=== PATIENT | female | born 1960 | race Caucasian/White ===

== ENCOUNTER → 2020-12-27 | Outpatient (CLI) | payer OTHER ==
[~2020-12-27] MED LIST: ALBU2.5V5 INH; ALEN70 PO; ATOR40TA PO; BENZ100A PO; BETA.05TO TOP; CALCITONIN-SAL3.7 M1 INH; CITA20 PO; EUTHYROX50 MCG PO; FURO20 PO; GABA300 PO; LIOT5 PO; ONDA4ODT MM; OXAYDO5 M1 PO; POTA10T PO; PRED5 PO; SYMBICORT 160-4.6 GM INH; VERAPAMIL ER120 M1 PO; [UNRECOGNIZED DRUG - OTHER] INH
[2020-12-29 09:53] LABS: Stool Occult Blood Guaiac 1 Neg (Neg)
== END | disposition home or self-care (01) ==
LOC: LAB SHORT 14:55 → LAB 14:55
PROVIDERS: Physician Assistant
DX: Z12.11 Encounter for screening for malignant neoplasm of colon (principal)
CPT/HCPCS: 82270

== ENCOUNTER 2021-04-24 14:03 | Emergency (ER) | payer OTHER ==
[~2021-04-24] VITALS: Ht 160 cm; Wt 45.4 kg
[2021-04-24 14:35] LABS: BASOPHILS ABSOLUTE AUTO 0.04 K/mm3 (0.00-0.23); BASOPHILS PERCENT AUTO 1 % (0-2); EOSINOPHILS ABSOLUTE AUTO 0.11 K/mm3 (0.00-0.68); EOSINOPHILS PERCENT AUTO 2 % (0-6); Hematocrit 50.9 % (33.0-51.0); Hemoglobin 17.6 g/dL (11.5-16.0); IMMATURE GRAN ABSOLUTE AUTO 0.06 K/mm3 (0.00-0.10); IMMATURE GRAN PERCENT AUTO 1 % (0-1); LYMPHOCYTES ABSOLUTE AUTO 1.76 K/mm3 (0.84-5.20); LYMPHOCYTES PERCENT AUTO 24 % (21-46); MONOCYTES ABSOLUTE AUTO 0.74 K/mm3 (0.16-1.47); MONOCYTES PERCENT AUTO 10 % (4-13); Mean Corpuscular HGB 31.2 pg (26.0-34.0); Mean Corpuscular HGB Conc 34.6 g/dL (31.5-36.5); Mean Corpuscular Volume 90 fL (80-100); Mean Platelet Volume 8.7 fL (9.1-12.4); NEUTROPHILS ABSOLUTE AUTO 4.56 K/mm3 (1.96-9.15); NEUTROPHILS PERCENT AUTO 63 % (41-73); Platelet Count 338 K/mm3 (150-400); RDW Coefficient Variation 13.2 % (11.7-14.2); RDW Standard Deviation 43.6 fL (35.1-46.3); Red Blood Cell Count 5.65 M/mm3 (3.80-5.20); White Blood Cell Count 7.27 K/mm3 (4.00-11.30)
[2021-04-24 14:48] LABS: Source, Urine Clean Catch
[2021-04-24 14:51] LABS: Alanine Aminotransfer (ALT/SGP 25 U/L (12-78); Albumin, Blood 3.6 g/dL (3.4-5.0); Albumin/Globulin Ratio 0.9 (0.8-1.8); Alk Phos 104 U/L (50-136); Anion Gap 8 mmol/L (6-16); Aspartate Aminotrans (AST/SGOT 20 U/L (12-37); Bilirubin, Total 0.5 mg/dL (0.1-1.0); Blood Urea Nitrogen 22 mg/dL (8-24); Bun/Creatinine Ratio 28.9 (12.0-20.0); CO2, Blood 21 mmol/L (21-32); Calcium, Blood 9.8 mg/dL (8.5-10.1); Chloride, Blood 105 mmol/L (98-108); Creatinine, Blood 0.76 mg/dL (0.40-1.00); Globulin, Blood 4.1 g/dL (2.2-4.0); Glomerular Filtration Rate >60 (60-); Glucose, Blood 136 mg/dL (70-99); Potassium, Blood 4.1 mmol/L (3.5-5.5); Sodium, Blood 134 mmol/L (136-145); Total Protein, Blood 7.7 g/dL (6.4-8.2)
[2021-04-24 15:01] LABS: Appearance, Urine Turbid (Clear); Bilirubin, Urine Neg (Neg); Blood, Urine 4+ (Neg); Color, Urine Yellow (P-Yellow); Glucose Qualitative, Urine Neg (Neg); Ketones, Urine 2+ (Neg); Leukocyte Esterase, Urine 2+ (Neg); Nitrite, Urine Neg (Neg); Protein, Urine 2+ (Neg); Specific Gravity, Urine 1.025 (1.003-1.022); Urobilinogen, Urine NORM (Normal)
[2021-04-24] MEDS ORDERED: ATOR40TA PO (15:04)
[2021-04-24] MEDS ORDERED: BENZ100A PO (15:05)
[2021-04-24] MEDS ORDERED: BETA.05TO TOP (15:05)
[2021-04-24] MEDS ORDERED: SYMBICORT 160-4.6 GM INH (15:06)
[2021-04-24] MEDS ORDERED: CALCITONIN-SAL3.7 M1 INH (15:07)
[2021-04-24] MEDS ORDERED: GABA300 PO (15:08)
[2021-04-24] MEDS ORDERED: FURO20 PO (15:08)
[2021-04-24] MEDS ORDERED: CITA20 PO (15:08)
[2021-04-24] MEDS ORDERED: [UNRECOGNIZED DRUG - OTHER] INH (15:09)
[2021-04-24] MEDS ORDERED: OXAYDO5 M1 PO (15:10)
[2021-04-24] MEDS ORDERED: EUTHYROX50 MCG PO (15:10)
[2021-04-24] MEDS ORDERED: LIOT5 PO (15:10)
[2021-04-24] MEDS ORDERED: VERAPAMIL ER120 M1 PO (15:11)
[2021-04-24] MEDS ORDERED: POTA10T PO (15:11)
[2021-04-24] MEDS ORDERED: PRED5 PO (15:11)
[2021-04-24] MEDS ORDERED: ALBU2.5V5 INH (15:12)
[2021-04-24] MEDS ORDERED: ALEN70 PO (15:12)
[2021-04-24 15:23] LABS: Squamous Epithelial Cells Mod /hpf (Few)
[2021-04-24 15:24] LABS: Bacteria Mod /hpf; Mucus Heavy (0-Heavy)
[2021-04-24] MEDS ORDERED: ONDA4ODT MM (18:04)
== END 2021-04-24 18:23 | disposition home or self-care (01) ==
LOC: ER 14:03
PROVIDERS: Emergency Medicine
DX: K52.9 Noninfective gastroenteritis and colitis, unspecified (principal); Z79.899 Other long term (current) drug therapy; Z79.52 Long term (current) use of systemic steroids
CPT/HCPCS: 36415; 74177; 80053; 81001; 83690; 85025; 87086; 96361; 96374; 96375; 96376; 99284-25; A9270; J2270; J2405; J7030; Q9967

== ENCOUNTER 2021-10-06 17:01 | Emergency (ER) | payer OTHER ==
[~2021-10-06] VITALS: Ht 160 cm; Wt 47.6 kg
[2021-10-06 18:19] LABS: BASOPHILS ABSOLUTE AUTO 0.07 K/mm3 (0.00-0.23); BASOPHILS PERCENT AUTO 1 % (0-2); EOSINOPHILS ABSOLUTE AUTO 0.09 K/mm3 (0.00-0.68); EOSINOPHILS PERCENT AUTO 1 % (0-6); Hemoglobin 18.5 g/dL (11.5-16.0); IMMATURE GRAN ABSOLUTE AUTO 0.08 K/mm3 (0.00-0.10); IMMATURE GRAN PERCENT AUTO 1 % (0-1); LYMPHOCYTES ABSOLUTE AUTO 1.42 K/mm3 (0.84-5.20); LYMPHOCYTES PERCENT AUTO 15 % (21-46); MONOCYTES ABSOLUTE AUTO 1.02 K/mm3 (0.16-1.47); MONOCYTES PERCENT AUTO 11 % (4-13); Mean Corpuscular HGB 31.4 pg (26.0-34.0); Mean Corpuscular HGB Conc 33.2 g/dL (31.5-36.5); Mean Corpuscular Volume 95 fL (80-100); Mean Platelet Volume 8.7 fL (9.1-12.4); NEUTROPHILS ABSOLUTE AUTO 6.79 K/mm3 (1.96-9.15); NEUTROPHILS PERCENT AUTO 72 % (41-73); Platelet Count 391 K/mm3 (150-400); RDW Coefficient Variation 12.7 % (11.7-14.2); RDW Standard Deviation 44.9 fL (35.1-46.3); Red Blood Cell Count 5.89 M/mm3 (3.80-5.20); White Blood Cell Count 9.47 K/mm3 (4.00-11.30)
[2021-10-06 18:24] LABS: Hematocrit 55.8 % (33.0-51.0)
[2021-10-06 18:47] LABS: Alanine Aminotransfer (ALT/SGP 28 U/L (12-78); Albumin/Globulin Ratio 0.8 (0.8-1.8); Alk Phos 138 U/L (50-136); Anion Gap 12 mmol/L (6-16); Aspartate Aminotrans (AST/SGOT 32 U/L (12-37); Bilirubin, Total 0.7 mg/dL (0.1-1.0); Blood Urea Nitrogen 28 mg/dL (8-24); Bun/Creatinine Ratio 37.9 (12.0-20.0); CO2, Blood 18 mmol/L (21-32); Calcium, Blood 10.1 mg/dL (8.5-10.1); Chloride, Blood 101 mmol/L (98-108); Creatinine, Blood 0.74 mg/dL (0.40-1.00); Globulin, Blood 4.8 g/dL (2.2-4.0); Glomerular Filtration Rate >60 (60-); Glucose, Blood 63 mg/dL (70-99); Potassium, Blood 4.6 mmol/L (3.5-5.5); Sodium, Blood 131 mmol/L (136-145); Total Protein, Blood 8.8 g/dL (6.4-8.2); Troponin I <0.015 ng/mL (0.000-0.040)
[2021-10-06 20:05] LABS: SARS-Cov-2 (COVID-19) PCR, MMC NEGATIVE (NEGATIVE)
[2021-10-06 21:00] LABS: Influenza A, PCR NEGATIVE (NEGATIVE); Influenza B, PCR NEGATIVE (NEGATIVE); Resp Syncytial Virus, PCR NEGATIVE (NEGATIVE)
[2021-10-06] MEDS ORDERED: ALMACONE SUSPE355 ML PO (22:10)
[2021-10-06] MEDS ORDERED: FAMO20 PO (22:10)
== END 2021-10-06 22:23 | disposition home or self-care (01) ==
LOC: ER 17:01
PROVIDERS: Physician Assistant; Student in an Organized Health Care Education/Training Program
DX: K29.70 Gastritis, unspecified, without bleeding (principal); J44.9 Chronic obstructive pulmonary disease, unspecified; K29.80 Duodenitis without bleeding; Z20.822 Contact with and (suspected) exposure to COVID-19; Z88.2 Allergy status to sulfonamides; Z91.030 Bee allergy status; Z88.8 Allergy status to other drugs, medicaments and biological substances; Z91.048 Other nonmedicinal substance allergy status; Z79.899 Other long term (current) drug therapy; Z79.52 Long term (current) use of systemic steroids
CPT/HCPCS: 0241U; 36415; 71045; 74177; 80053; 83690; 84484; 85025; 93005; 93010; 96374; 96375; 99284-25; A9270; J2270; J2405; J7030; Q9967

== ENCOUNTER 2023-09-11 08:36 | Emergency (ER) | payer OTHER ==
[~2023-09-11] VITALS: Ht 160 cm; Wt 52.2 kg
[~2023-09-11 08:36] MED LIST changes: +ALMACONE SUSPE355 ML PO; +FAMO20 PO
[2023-09-11 10:48] LABS: BASOPHILS ABSOLUTE AUTO 0.03 K/mm3 (0.00-0.23); BASOPHILS PERCENT AUTO 0 % (0-2); EOSINOPHILS PERCENT AUTO 4 % (0-6); Hematocrit 48.7 % (33.0-51.0); Hemoglobin 16.7 g/dL (11.5-16.0); IMMATURE GRAN ABSOLUTE AUTO 0.04 K/mm3 (0.00-0.10); IMMATURE GRAN PERCENT AUTO 1 % (0-1); LYMPHOCYTES ABSOLUTE AUTO 1.65 K/mm3 (0.84-5.20); LYMPHOCYTES PERCENT AUTO 24 % (21-46); MONOCYTES ABSOLUTE AUTO 0.71 K/mm3 (0.16-1.47); MONOCYTES PERCENT AUTO 10 % (4-13); Mean Corpuscular HGB 30.7 pg (26.0-34.0); Mean Corpuscular HGB Conc 34.3 g/dL (31.5-36.5); Mean Corpuscular Volume 90 fL (80-100); Mean Platelet Volume 8.9 fL (9.1-12.4); NEUTROPHILS ABSOLUTE AUTO 4.15 K/mm3 (1.96-9.15); NEUTROPHILS PERCENT AUTO 60 % (41-73); Platelet Count 335 K/mm3 (150-400); RDW Coefficient Variation 12.3 % (11.7-14.2); RDW Standard Deviation 40.4 fL (35.1-46.3); Red Blood Cell Count 5.44 M/mm3 (3.80-5.20); White Blood Cell Count 6.88 K/mm3 (4.00-11.30)
[2023-09-11 11:09] LABS: Albumin, Blood 3.7 g/dL (3.4-5.0); Albumin/Globulin Ratio 0.8 (0.8-1.8); Bilirubin, Total 0.6 mg/dL (0.1-1.0); Bun/Creatinine Ratio 23.7 (12.0-20.0); Calcium, Blood 9.7 mg/dL (8.5-10.1); Creatinine, Blood 0.89 mg/dL (0.40-1.00); Globulin, Blood 4.4 g/dL (2.2-4.0); Potassium, Blood 4.5 mmol/L (3.5-5.5); Total Protein, Blood 8.1 g/dL (6.4-8.2)
[2023-09-11 11:11] LABS: Source, Urine Clean Catch
[2023-09-11 11:14] LABS: Bilirubin, Urine Neg (Neg); Blood, Urine 4+ (Neg); Glucose Qualitative, Urine Neg (Neg); Ketones, Urine 3+ (Neg); Leukocyte Esterase, Urine 3+ (Neg); Nitrite, Urine Pos (Neg); Protein, Urine 2+ (Neg); Specific Gravity, Urine 1.025 (1.003-1.022); Urobilinogen, Urine NORM (Normal)
[2023-09-11 11:26] LABS: Appearance, Urine Hazy (Clear); Bacteria Mod /hpf; Color, Urine Yellow (P-Yellow); Squamous Epithelial Cells Not Seen /hpf (Few)
[2023-09-11 13:22] VITALS: BP 135/66
[2023-09-11] MEDS ORDERED: CEFD300 PO (13:25)
== END 2023-09-11 14:04 | disposition home or self-care (01) ==
LOC: ER 08:36
PROVIDERS: Physician Assistant
DX: N39.0 Urinary tract infection, site not specified (principal); R11.2 Nausea with vomiting, unspecified; J44.9 Chronic obstructive pulmonary disease, unspecified; Z88.2 Allergy status to sulfonamides; Z88.0 Allergy status to penicillin; Z88.1 Allergy status to other antibiotic agents; Z91.030 Bee allergy status; Z91.048 Other nonmedicinal substance allergy status; Z79.51 Long term (current) use of inhaled steroids; Z79.890 Hormone replacement therapy; Z79.899 Other long term (current) drug therapy; Z79.52 Long term (current) use of systemic steroids
CPT/HCPCS: 80053; 81001; 83690; 85025; 87077; 87086; 87186; 96361; 96365; 96375; 99284-25; J1885; J2405; J7030

== ENCOUNTER → 2023-09-13 | Outpatient (CLI) | payer OTHER ==
[~2023-09-13] MED LIST changes: +CEFD300 PO
== END ==
LOC: LAB 15:46 → LAB SHORT 15:46
DX: N39.0 Urinary tract infection, site not specified (principal)
CPT/HCPCS: 87086

== ENCOUNTER 2024-01-10 13:45 | Emergency (ER) | payer OTHER ==
[~2024-01-10] VITALS: Ht 157.5 cm; Wt 54.4 kg
[2024-01-10] MEDS ORDERED: Robaxin750 MG (14:34)
[2024-01-10 14:56] LABS: BASOPHILS ABSOLUTE AUTO 0.06 K/mm3 (0.00-0.23); BASOPHILS PERCENT AUTO 1 % (0-2); EOSINOPHILS ABSOLUTE AUTO 0.22 K/mm3 (0.00-0.68); EOSINOPHILS PERCENT AUTO 3 % (0-6); Hematocrit 47.1 % (33.0-51.0); Hemoglobin 15.9 g/dL (11.5-16.0); IMMATURE GRAN ABSOLUTE AUTO 0.06 K/mm3 (0.00-0.10); IMMATURE GRAN PERCENT AUTO 1 % (0-1); LYMPHOCYTES ABSOLUTE AUTO 1.57 K/mm3 (0.84-5.20); LYMPHOCYTES PERCENT AUTO 24 % (21-46); MONOCYTES ABSOLUTE AUTO 0.98 K/mm3 (0.16-1.47); MONOCYTES PERCENT AUTO 15 % (4-13); Mean Corpuscular HGB 30.4 pg (26.0-34.0); Mean Corpuscular HGB Conc 33.8 g/dL (31.5-36.5); Mean Corpuscular Volume 90 fL (80-100); NEUTROPHILS ABSOLUTE AUTO 3.68 K/mm3 (1.96-9.15); NEUTROPHILS PERCENT AUTO 56 % (41-73); Platelet Count 352 K/mm3 (150-400); RDW Coefficient Variation 12.6 % (11.7-14.2); RDW Standard Deviation 41.9 fL (35.1-46.3); Red Blood Cell Count 5.23 M/mm3 (3.80-5.20); White Blood Cell Count 6.57 K/mm3 (4.00-11.30)
[2024-01-10 15:08] LABS: Albumin, Blood 3.4 g/dL (3.4-5.0); Albumin/Globulin Ratio 0.8 (0.8-1.8); Bilirubin, Total 0.6 mg/dL (0.1-1.0); Calcium, Blood 9.8 mg/dL (8.5-10.1); Creatinine, Blood 0.65 mg/dL (0.40-1.00); Globulin, Blood 4.5 g/dL (2.2-4.0); Potassium, Blood 4.4 mmol/L (3.5-5.5); Total Protein, Blood 7.9 g/dL (6.4-8.2)
[2024-01-10] MEDS ORDERED: Albuterol 2.5 MG/3 ML VIAL INH ONE (15:10)
[2024-01-10] MEDS ORDERED: Metoclopramide HCl 5MG / ML 2ML Vial IV ONE (15:10)
[2024-01-10] MEDS ORDERED: NS 1,000 ML IV ONE (15:10)
[2024-01-10 15:30] VITALS: BP 138/86
[2024-01-10 16:02] LABS: International Normalized Ratio 1.03; Prothrombin Time Results 10.8 Sec (9.7-11.5)
[2024-01-10 16:26] LABS: Influenza A, PCR NEGATIVE (NEGATIVE); Influenza B, PCR NEGATIVE (NEGATIVE); Resp Syncytial Virus, PCR NEGATIVE (NEGATIVE); SARS-Cov-2 (COVID-19) PCR, MMC NEGATIVE (NEGATIVE)
[2024-01-10 16:30] LABS: Albumin, Blood 3.2 g/dL (3.4-5.0); Albumin/Globulin Ratio 0.7 (0.8-1.8); Bilirubin, Total 0.5 mg/dL (0.1-1.0); Bun/Creatinine Ratio 32.1 (12.0-20.0); Calcium, Blood 9.4 mg/dL (8.5-10.1); Creatinine, Blood 0.65 mg/dL (0.40-1.00); Globulin, Blood 4.5 g/dL (2.2-4.0); Potassium, Blood 4.1 mmol/L (3.5-5.5); Total Protein, Blood 7.7 g/dL (6.4-8.2)
[2024-01-10] MEDS ORDERED: ONDA4ODT SL (16:59)
== END 2024-01-10 17:21 | disposition home or self-care (01) ==
LOC: ER 13:45
PROVIDERS: Emergency Medicine; Student in an Organized Health Care Education/Training Program
DX: R11.10 Vomiting, unspecified (principal); K62.5 Hemorrhage of anus and rectum; J44.9 Chronic obstructive pulmonary disease, unspecified; J40 Bronchitis, not specified as acute or chronic; E89.3 Postprocedural hypopituitarism; R10.13 Epigastric pain; I10 Essential (primary) hypertension; Z91.030 Bee allergy status; Z88.2 Allergy status to sulfonamides; Z88.0 Allergy status to penicillin; Z88.1 Allergy status to other antibiotic agents; Z79.899 Other long term (current) drug therapy; Z79.890 Hormone replacement therapy; Z79.52 Long term (current) use of systemic steroids
CPT/HCPCS: 0241U; 71045; 74177; 80053; 83690; 84484; 85025; 85610; 86850; 86900; 86901; 93005; 93010; 94640; 94664; 96361; 96374-59; 99285-25; J2765; J7030; Q9967

== ENCOUNTER 2024-03-27 22:11 | Emergency (ER) | payer OTHER ==
[~2024-03-27] VITALS: Ht 154.9 cm; Wt 53.5 kg
[~2024-03-27 22:11] MED LIST changes: +ONDA4ODT SL; +Robaxin750 MG
[2024-03-27 22:41] VITALS: BP 151/112
[2024-03-27] MEDS ORDERED: Clindamycin HCl 150 MG Cap PO ONE (22:45)
[2024-03-27] MEDS ORDERED: Doxycycline Hyclate 100 MG TAB PO ONE (22:45)
[2024-03-27] MEDS ORDERED: HYDROcodone 5-APAP 325 TAB PO ONE (22:45)
[2024-03-27] MEDS ORDERED: Diphth,Pertuss(Acell),Tet Vac 0.5 ML VIAL IM ONE (22:45)
[2024-03-27] MEDS ORDERED: Vibramycin100 MG PO (22:47)
[2024-03-27] MEDS ORDERED: Cleocin HCl150 MG PO (22:47)
== END 2024-03-27 23:50 | disposition home or self-care (01) ==
LOC: ER 22:11
DX: S61.451A Open bite of right hand, initial encounter (principal); S61.551A Open bite of right wrist, initial encounter; W54.0XXA Bitten by dog, initial encounter; Z91.030 Bee allergy status; Z88.2 Allergy status to sulfonamides; Z88.0 Allergy status to penicillin; Z88.1 Allergy status to other antibiotic agents; Z79.899 Other long term (current) drug therapy; Z79.52 Long term (current) use of systemic steroids; I10 Essential (primary) hypertension; J44.9 Chronic obstructive pulmonary disease, unspecified; E03.9 Hypothyroidism, unspecified; Z87.891 Personal history of nicotine dependence
CPT/HCPCS: 99283; A9270

== ENCOUNTER 2024-05-23 22:36 | Emergency (ER) | payer OTHER ==
[~2024-05-23] VITALS: Ht 154.9 cm; Wt 53.5 kg
[~2024-05-23 22:36] MED LIST changes: +Cleocin HCl150 MG PO; +Vibramycin100 MG PO
[2024-05-23 23:08] VITALS: BP 134/80
== END 2024-05-24 01:29 | disposition home or self-care (01) ==
LOC: ER 22:36
DX: S81.811A Laceration without foreign body, right lower leg, initial encounter (principal); W54.1XXA Struck by dog, initial encounter; Z91.030 Bee allergy status; Z88.0 Allergy status to penicillin; Z88.2 Allergy status to sulfonamides; Z79.899 Other long term (current) drug therapy; Z79.52 Long term (current) use of systemic steroids; I10 Essential (primary) hypertension; J44.9 Chronic obstructive pulmonary disease, unspecified; E03.9 Hypothyroidism, unspecified; F17.210 Nicotine dependence, cigarettes, uncomplicated
CPT/HCPCS: 12002; 99282-25

== ENCOUNTER 2024-06-20 10:17 | Emergency (ER) | payer OTHER ==
[~2024-06-20] VITALS: Ht 154.9 cm; Wt 49.9 kg
[2024-06-20 10:51] LABS: BASOPHILS ABSOLUTE AUTO 0.04 K/mm3 (0.00-0.23); BASOPHILS PERCENT AUTO 1 % (0-2); EOSINOPHILS ABSOLUTE AUTO 0.21 K/mm3 (0.00-0.68); EOSINOPHILS PERCENT AUTO 3 % (0-6); Hematocrit 46.4 % (33.0-51.0); Hemoglobin 15.8 g/dL (11.5-16.0); IMMATURE GRAN ABSOLUTE AUTO 0.04 K/mm3 (0.00-0.10); IMMATURE GRAN PERCENT AUTO 1 % (0-1); LYMPHOCYTES ABSOLUTE AUTO 1.91 K/mm3 (0.84-5.20); LYMPHOCYTES PERCENT AUTO 26 % (21-46); MONOCYTES ABSOLUTE AUTO 0.83 K/mm3 (0.16-1.47); MONOCYTES PERCENT AUTO 11 % (4-13); Mean Corpuscular HGB 31.3 pg (26.0-34.0); Mean Corpuscular HGB Conc 34.1 g/dL (31.5-36.5); Mean Corpuscular Volume 92 fL (80-100); NEUTROPHILS ABSOLUTE AUTO 4.45 K/mm3 (1.96-9.15); NEUTROPHILS PERCENT AUTO 60 % (41-73); Platelet Count 270 K/mm3 (150-400); RDW Coefficient Variation 12.6 % (11.7-14.2); RDW Standard Deviation 42.1 fL (35.1-46.3); Red Blood Cell Count 5.05 M/mm3 (3.80-5.20); White Blood Cell Count 7.48 K/mm3 (4.00-11.30)
[2024-06-20] MEDS ORDERED: FentaNYL Citrate 50 MCG/ML 2 ML Injection IV ONE (10:55)
[2024-06-20] MEDS ORDERED: Ipratropium/Albuterol SulF 2.5-0.5MG/3 ML Amp INH ONE (10:55)
[2024-06-20] MEDS ORDERED: MethylPREDNISolone Sod Succ 125 MG Vial IV ONE (10:55)
[2024-06-20] MEDS ORDERED: Ondansetron HCl 2 MG / ML 2ML Vial IV ONE (10:55)
[2024-06-20] MEDS ORDERED: Lactated Ringer's 1,000 ML IV ONE (10:55)
[2024-06-20 11:00] LABS: Bicarbonate Venous 22.5 mmol/L (24.0-30.0); PCO2 Venous 25.9 mmHg (38-42); pH Blood Venous 7.48 (7.34-7.37)
[2024-06-20 11:01] LABS: Base Excess Venous -4.1 mmol/L
[2024-06-20 11:09] LABS: Albumin, Blood 3.8 g/dL (3.4-5.0); Albumin/Globulin Ratio 0.9 (0.8-1.8); Bilirubin, Total 1.1 mg/dL (0.1-1.0); Bun/Creatinine Ratio 19.9 (12.0-20.0); Calcium, Blood 9.3 mg/dL (8.5-10.1); Creatinine, Blood 0.86 mg/dL (0.40-1.00); Globulin, Blood 4.4 g/dL (2.2-4.0); Potassium, Blood 4.1 mmol/L (3.5-5.5); Total Protein, Blood 8.2 g/dL (6.4-8.2)
[2024-06-20] MEDS ORDERED: CLIN150 (11:42)
[2024-06-20] MEDS ORDERED: TRAZ50 PO (11:43)
[2024-06-20] MEDS ORDERED: SPIRIVA RESPIMAT4 G3 (11:43)
[2024-06-20 12:06] LABS: Influenza A, PCR NEGATIVE (NEGATIVE); Influenza B, PCR NEGATIVE (NEGATIVE); Resp Syncytial Virus, PCR NEGATIVE (NEGATIVE); SARS-Cov-2 (COVID-19) PCR, MMC NEGATIVE (NEGATIVE)
[2024-06-20 12:34] VITALS: BP 162/82
== END 2024-06-20 12:52 | disposition home or self-care (01) ==
LOC: ER 10:17
PROVIDERS: Emergency Medicine
DX: J44.1 Chronic obstructive pulmonary disease with (acute) exacerbation (principal); B34.9 Viral infection, unspecified; Z88.2 Allergy status to sulfonamides; Z88.8 Allergy status to other drugs, medicaments and biological substances; Z91.038 Other insect allergy status; Z88.0 Allergy status to penicillin; Z88.1 Allergy status to other antibiotic agents; Z79.51 Long term (current) use of inhaled steroids; Z79.899 Other long term (current) drug therapy
CPT/HCPCS: 0241U; 71045; 80053; 82803; 83690; 84484; 85025; 93005; 93010; 94640; 94664; 96361; 96374; 96375; 99284-25; J2405; J2919; J3010; J7120